=== PATIENT | female | born 1965 | race Caucasian/White ===

== ENCOUNTER → 2016-09-07 | Outpatient (CLI) | payer OTHER ==
[~2016-09-07] MED LIST: DOXY-182 PO; METH4TAB27 PO
[2016-09-07 16:54] VITALS: BP 119/82
--- NOTE | 2016-09-07 16:54 | Urgent Care T Sheet Gen (E) ---
Intake General Temperature (Fahrenheit): 98.6 Pulse: 114 Blood Pressure Systolic: 119 Blood Pressure Diastolic: 82 Respirations: 20 SPO2: 96 Description of Symptoms Patient presents complaining of illness. Has been sick with cough and congestion for over 2 weeks. Was seen at [facility] ER on Monday and was diagnosed with bronchitis. Was started on Bactrim however hasn't noticed any improvement , actually feels worse. Patient had been taking Tylenol Cold, Mucinex and DayQuil however stopped when starting the abx. No fever. Notes SOB and chest congestion. Cough is worse at night and first thing in the morning. Is mostly productive. Respiratory Constitutional Symptoms: No Fever, Malaise EENTM: Nose Congestion Throat pain Respiratory: Cough Short of breathNo Wheezing Cardiovascular: No symptoms reported All Other Systems Reviewed Remaining Systems: All other systems reviewed with negative findings Physical Exam Physical Exam General Appearance: WD/WN No apparent distress Eyes, Ears, Nose, Throat Ex: TMs normal (air fluid bubbles but not red) Pharyngeal erythema (cobblestone appearance with PND) Other (nasal congestion with clear, thick drainage) Neck Exam: Supple Lymphadenopathy Respiratory Exam: Lungs clear Normal breath sounds Cardiovascular Exam: Regular rate, rhythm Progress/Orders Progress Note: Progress Note Negative chest xray Departure Urgent Care Impression Impression: Primary Impression: Bronchitis Departure Disposition: HOME OR SELF-CARE Condition: Stable Additional Instructions: While her lungs sounded clear on exam, her O2 saturation was low. With her worsening symptoms despite antibiotic treatment, I opted to order a chest xray, which was negative Instructed her to stop the Bactrim as it hasn't been helping. I have switched her to Doxycycline BID and medrol dose pack for inflammation Rest. Fluids Call if no better by Monday. Patient understands DC instructions. All questions were answered. Scripts Methylprednisolone (Medrol Dosepack)21 Tab/Pkt Tablet6 Tab PO DAILY Inflammation #1 PKT Ref 0 6 tabs po on day 1 then decrease by 1 tab daily until packet is gone Prov:KELSEA COTTO 09/07/16 Doxycycline Hyclate 100 Mg Tablet.dr100 Mg PO BID Infection #14 TAB Ref 0 Prov:KELSEA COTTO 09/07/16 End of report . KELSEA COTTO Sep 07, 2016 16:10
--- NOTE | 2016-09-09 14:59 | Urgent Care Follow Up Note (E) ---
Urgent Care Follow Up Note Patient called this afternoon stating she isn't doing any better since being seen on Monday. Patient presented to and was diagnosed with bronchitis. Chest xray was negative for any acute findings. She was switched from Bactrim to Doxycycline and started on a Medrol dose pack. Patient states her chest hurts between her breasts. She is very short of breath while talking on the phone. Instructed her to present to the ER in [facility] (where she lives) for a cardiac workup. From an infectious standpoint, she should be better with the above treatment. Since she isn't improving, cardiac needs to be addressed. Patient agrees and will head to the ER Scripts Methylprednisolone (Medrol Dosepack)21 Tab/Pkt Tablet6 Tab PO DAILY Inflammation #1 PKT Ref 0 6 tabs po on day 1 then decrease by 1 tab daily until packet is gone Prov:KELSEA COTTO 09/07/16 Doxycycline Hyclate 100 Mg Tablet.dr100 Mg PO BID Infection #14 TAB Ref 0 Prov:KELSEA COTTO 09/07/16 KELSEA COTTO Sep 09, 2016 14:59
== END ==
LOC: MHUC 15:48
PROVIDERS: ATTEND Physician Assistant
DX: J40 Bronchitis, not specified as acute or chronic (principal)
CPT/HCPCS: 99213

== ENCOUNTER → 2016-09-07 | Outpatient (CLI) | payer OTHER ==
--- NOTE | 2016-09-07 16:49 | Diagnostic Imaging Report ---
EXAM: CHEST PA/LAT (2 VIEW)* INDICATION: Dyspnea. COMPARISON: None. FINDINGS: Normal heart size and pulmonary vascularity. No focal pulmonary consolidation, pleural effusion or pneumothorax. Osseous structures are unremarkable. IMPRESSION: No acute cardiopulmonary findings. Findings discussed with SRINIVAS Quintanilla at 4:44 PM on 09/07/2016. Dictated by: Dictated on workstation # [id number]
== END ==
LOC: RAD 16:13
PROVIDERS: ATTEND Physician Assistant
DX: R06.00 Dyspnea, unspecified (principal)
CPT/HCPCS: 71020